=== PATIENT | female | born 1970 | race Caucasian/White ===

== ENCOUNTER 2018-11-24 17:33 | Observation (INO) | payer OTHER ==
[~2018-11-24] VITALS: Ht 167.6 cm; Wt 80.9 kg
[2018-11-24] MEDS ORDERED: MV-ONE PO (17:53)
[2018-11-24 18:03] LABS: IMMATURE GRANULOCYTES 0.5 % (0.0-5.0); MEAN CELL VOLUME 93.6 fL CALC (80.0-100.0); MEAN CORPUSCULAR HGB 32.1 pG CALC (26.0-32.0); MEAN CORPUSCULAR HGB CONC 34.3 g/L CALC (32.0-36.0); NEUT# 9.31 thou/uL (2.00-7.15); RED BLOOD COUNT 5.48 mill/uL (4.20-5.60); RED CELL DISTRI WIDTH 12.3 % (11.5-15.5)
[2018-11-24 18:05] LABS: GFR > 60 ML/MIN (>=60 (CALC)); GFR FOR AFR.AMER. > 60 ML/MIN (>=60 (CALC))
[2018-11-24 18:09] LABS: HEMATOCRIT 51.3 % (37.0-47.0); HEMOGLOBIN 17.6 g/dl (12.0-16.0)
[2018-11-24 18:21] LABS: ANION GAP 20 (6-22 (CALC)); BUN 18 mg/dL (7-17); BUN/CREATININE RATIO 32 (12-20 (CALC)); CARBON DIOXIDE 22 mmol/l (22-30); CHLORIDE 98 mmol/l (95-108); CREATININE 0.6 mg/dL (0.5-1.0); GFR > 60 ML/MIN (>=60 (CALC)); GFR FOR AFR.AMER. > 60 ML/MIN (>=60 (CALC)); POTASSIUM 4.4 mmol/l (3.5-5.1); SODIUM 136 mmol/l (137-146)
[2018-11-24 20:02] VITALS: BP 166/106
[2018-11-24 20:15] VITALS: BP 160/107
[2018-11-24 20:42] VITALS: BP 153/104
[2018-11-24 22:31] VITALS: BP 126/81
[2018-11-25] VITALS (7 sets, daily range): BP systolic 120–151; BP diastolic 76–104
[2018-11-25 13:52] LABS: URINE BILIRUBIN - DIPSTICK NEGATIVE (NEGATIVE); URINE BLOOD DIPSTICK NEGATIVE (NEGATIVE); URINE COLOR YELLOW; URINE GLUCOSE - DIPSTICK >=1000 mg/dL (NEGATIVE); URINE KETONE 15 mg/dL (NEGATIVE); URINE LEUK ESTERASE NEGATIVE (Negative); URINE NITRITE - DIPSTICK NEGATIVE (Negative); URINE PROTEIN - DIPSTICK TRACE mg/dL (NEG-TRACE); URINE UROBILINOGEN - DIPSTICK 0.2 E.U./dL (0.2)
[2018-11-25 14:05] LABS: URINE CLARITY CLEAR
[2018-11-26 00:40] VITALS: BP 111/69
[2018-11-26 04:50] VITALS: BP 127/80
[2018-11-26 05:01] LABS: HEMATOCRIT 45.5 % (37.0-47.0); IMMATURE GRANULOCYTES 0.4 % (0.0-5.0); MEAN CELL VOLUME 94.6 fL CALC (80.0-100.0); MEAN CORPUSCULAR HGB 32.2 pG CALC (26.0-32.0); MEAN CORPUSCULAR HGB CONC 34.1 g/L CALC (32.0-36.0); NEUT# 5.42 thou/uL (2.00-7.15); RED BLOOD COUNT 4.81 mill/uL (4.20-5.60); RED CELL DISTRI WIDTH 12.2 % (11.5-15.5)
[2018-11-26 05:07] LABS: HEMOGLOBIN 15.5 g/dl (12.0-16.0)
[2018-11-26 06:10] LABS: ALBUMIN 3.6 g/dL (3.2-5.0); ALKALINE PHOSPHATASE 82 u/l (38-126); AMYLASE 31 u/l (30-110); ANION GAP 15 (6-22 (CALC)); BILIRUBIN, TOTAL 0.6 mg/dL (0.0-1.4); BUN 19 mg/dL (7-17); BUN/CREATININE RATIO 33 (12-20 (CALC)); CARBON DIOXIDE 26 mmol/l (22-30); CHLORIDE 100 mmol/l (95-108); CREATININE 0.6 mg/dL (0.5-1.0); GFR > 60 ML/MIN (>=60 (CALC)); GFR FOR AFR.AMER. > 60 ML/MIN (>=60 (CALC)); MAGNESIUM 1.6 mg/dL (1.6-2.3); SGOT/AST 22 u/l (14-36); SODIUM 138 mmol/l (137-146)
[2018-11-26 06:11] LABS: LIPASE 52 u/l (23-300)
[2018-11-26 06:12] LABS: TOTAL PROTEIN 5.7 g/dL (6.3-8.2)
[2018-11-26 07:32] VITALS: BP 132/90
[2018-11-26 11:06] VITALS: BP 119/80
[2018-11-26 13:10] LABS: CHOLESTEROL HDL RATIO 5.5 (<4.4 (CALC))
[2018-11-26] MEDS ORDERED: CARVEDILOL6.25 MG PO (13:44)
[2018-11-26] MEDS ORDERED: LOSARTAN POTASS25 MG PO (13:44)
[2018-11-26] MEDS ORDERED: GLUCOPHAGE500 MG PO (13:44)
[2018-11-26] MEDS ORDERED: LIPITOR20 M1 PO (13:44)
[2018-11-26] MEDS ORDERED: ASPIRIN 81 LOW81 MG PO (13:44)
[2018-11-26] MEDS ORDERED: JANUVIA50 MG PO (13:44)
[2018-11-26] MEDS ORDERED: BUMETANIDE1 MG PO (14:11)
== END 2018-11-26 15:08 | disposition home or self-care (01) | DRG 291 ==
LOC: ED 17:33 → ED-I 18:47 → ED 19:00 → MS2 19:01
PROVIDERS: Family Medicine; Internal Medicine Nephrology; Nurse Practitioner Family; ADMIT Internal Medicine; ATTEND Internal Medicine
DX: I11.0 Hypertensive heart disease with heart failure (principal); I50.31 Acute diastolic (congestive) heart failure; E11.65 Type 2 diabetes mellitus with hyperglycemia; I16.0 Hypertensive urgency; E87.1 Hypo-osmolality and hyponatremia; I34.0 Nonrheumatic mitral (valve) insufficiency; D72.829 Elevated white blood cell count, unspecified
CPT/HCPCS: G0378; J1650; Q9967

== ENCOUNTER 2021-09-01 16:00 | Emergency (ER) | payer OTHER ==
[~2021-09-01] VITALS: Ht 167.6 cm; Wt 75.0 kg
[~2021-09-01 16:00] MED LIST: ASPIRIN 81 LOW81 MG PO; BUMETANIDE1 MG PO; CARVEDILOL6.25 MG PO; GLUCOPHAGE500 MG PO; JANUVIA50 MG PO; LIPITOR20 M1 PO; LOSARTAN POTASS25 MG PO; MV-ONE PO
[2021-09-01 19:03] LABS: IMMATURE GRANULOCYTES 0.1 % (0.0-5.0); MEAN CELL VOLUME 95.6 fL CALC (80.0-100.0); MEAN CORPUSCULAR HGB 32.5 pG CALC (26.0-32.0); NEUT# 9.37 thou/uL (2.00-7.15); RED BLOOD COUNT 4.12 mill/uL (4.20-5.60); RED CELL DISTRI WIDTH 12.2 % (11.5-15.5); URINE BILIRUBIN - DIPSTICK NEGATIVE (NEGATIVE); URINE BLOOD DIPSTICK NEGATIVE (NEGATIVE); URINE COLOR YELLOW; URINE GLUCOSE - DIPSTICK >=1000 mg/dL (NEGATIVE); URINE KETONE NEGATIVE (NEGATIVE); URINE LEUK ESTERASE NEGATIVE (NEGATIVE); URINE NITRITE - DIPSTICK NEGATIVE (Negative); URINE PH 5.5 (4.5-8.0); URINE PROTEIN - DIPSTICK NEGATIVE (NEG-TRACE); URINE UROBILINOGEN - DIPSTICK 0.2 E.U./dL (0.2)
[2021-09-01 19:05] LABS: HEMATOCRIT 39.4 % (37.0-47.0); HEMOGLOBIN 13.4 g/dl (12.0-16.0)
[2021-09-01 19:25] LABS: ALKALINE PHOSPHATASE 112 u/l (38-126); ANION GAP 13 (6-22 (CALC)); BILIRUBIN, TOTAL 0.6 mg/dL (0.0-1.4); BUN 24 mg/dL (7-17); BUN/CREATININE RATIO 22 (12-20 (CALC)); CARBON DIOXIDE 30 mmol/l (22-30); CHLORIDE 100 mmol/l (95-108); CREATININE 1.1 mg/dL (0.5-1.0); GFR 52 ML/MIN (>=60 (CALC)); GFR FOR AFR.AMER. > 60 ML/MIN (>=60 (CALC)); LIPASE 141 u/l (23-300); POTASSIUM 4.5 mmol/l (3.5-5.1); SGOT/AST 19 u/l (14-36); SODIUM 138 mmol/l (137-146)
[2021-09-01 19:26] LABS: ALBUMIN 4.8 g/dL (3.2-5.0)
[2021-09-01] MEDS ORDERED: ZOFRAN4 MG/TAB PO (19:48)
[2021-09-01] MEDS ORDERED: TORADOL PO (19:48)
[2021-09-01] MEDS ORDERED: METFORMIN500 M2 PO (20:24)
[2021-09-01] MEDS ORDERED: ENTRESTO 24-261 TAB PO (20:25)
[2021-09-01] MEDS ORDERED: JARDIANCE10 MG PO (20:26)
[2021-09-01] MEDS ORDERED: COREG6.25 MG PO (20:26)
[2021-09-01] MEDS ORDERED: BUMETANIDE1 MG PO (20:27)
[2021-09-01 21:32] VITALS: BP 126/70
== END 2021-09-01 21:32 | disposition home or self-care (01) | DRG 392 ==
LOC: ED 16:00
PROVIDERS: Family Medicine
DX: R10.10 Upper abdominal pain, unspecified (principal); R11.2 Nausea with vomiting, unspecified; R19.7 Diarrhea, unspecified; I11.0 Hypertensive heart disease with heart failure; I50.9 Heart failure, unspecified; E11.9 Type 2 diabetes mellitus without complications; K80.20 Calculus of gallbladder without cholecystitis without obstruction; Z85.42 Personal history of malignant neoplasm of other parts of uterus

== ENCOUNTER 2021-10-23 15:45 | Observation (INO) | payer BC ==
[~2021-10-23] VITALS: Ht 167.6 cm; Wt 82.0 kg
[~2021-10-23 15:45] MED LIST changes: +COREG6.25 MG PO; +ENTRESTO 24-261 TAB PO; +JARDIANCE10 MG PO; +METFORMIN500 M2 PO; +TORADOL PO; +ZOFRAN4 MG/TAB PO
[2021-10-23 18:50] LABS: HEMATOCRIT 40.9 % (37.0-47.0); HEMOGLOBIN 13.6 g/dl (12.0-16.0); IMMATURE GRANULOCYTES 0.4 % (0.0-5.0); MEAN CELL VOLUME 97.8 fL CALC (80.0-100.0); MEAN CORPUSCULAR HGB 32.5 pG CALC (26.0-32.0); MEAN CORPUSCULAR HGB CONC 33.3 g/dL CAL (32.0-36.0); NEUT# 11.91 thou/uL (2.00-7.15); RED BLOOD COUNT 4.18 mill/uL (4.20-5.60); RED CELL DISTRI WIDTH 12.4 % (11.5-15.5)
[2021-10-23 18:51] LABS: URINE BILIRUBIN - DIPSTICK NEGATIVE (NEGATIVE); URINE BLOOD DIPSTICK NEGATIVE (NEGATIVE); URINE CLARITY CLEAR; URINE COLOR YELLOW; URINE GLUCOSE - DIPSTICK >=1000 mg/dL (NEGATIVE); URINE KETONE TRACE mg/dL (NEGATIVE); URINE LEUK ESTERASE NEGATIVE (Negative); URINE NITRITE - DIPSTICK NEGATIVE (Negative); URINE PROTEIN - DIPSTICK NEGATIVE (NEG-TRACE); URINE UROBILINOGEN - DIPSTICK 0.2 E.U./dL (0.2)
[2021-10-23 19:00] VITALS: BP 152/78
[2021-10-23 19:07] LABS: CREATININE 1.2 mg/dL (0.5-1.0); POTASSIUM 4.4 mmol/l (3.5-5.1)
[2021-10-24 04:00] VITALS: BP 121/66
[2021-10-24 05:40] LABS: HEMATOCRIT 35.4 % (37.0-47.0); HEMOGLOBIN 11.8 g/dl (12.0-16.0); MEAN CELL VOLUME 98.1 fL CALC (80.0-100.0); MEAN CORPUSCULAR HGB 32.7 pG CALC (26.0-32.0); MEAN CORPUSCULAR HGB CONC 33.3 g/dL CAL (32.0-36.0); RED BLOOD COUNT 3.61 mill/uL (4.20-5.60); RED CELL DISTRI WIDTH 12.3 % (11.5-15.5)
[2021-10-24 06:21] LABS: BILIRUBIN, TOTAL 0.8 mg/dL (0.0-1.4); CREATININE 1.2 mg/dL (0.5-1.0); MAGNESIUM 1.4 mg/dL (1.6-2.3); POTASSIUM 3.9 mmol/l (3.5-5.1)
[2021-10-24 06:22] LABS: ALBUMIN 3.5 g/dL (3.2-5.0)
[2021-10-24] MEDS ORDERED: PERCOCET 5/321 COMBO PO (10:54)
[2021-10-24 15:03] VITALS: BP 119/64
== END 2021-10-24 16:43 | disposition home or self-care (01) | DRG 419 ==
LOC: MS2 15:45
PROVIDERS: ADMIT Hospitalist; ATTEND Hospitalist
PROC: 0FT44ZZ Resection of Gallbladder, Percutaneous Endoscopic Approach (ICD-10-PCS; principal; 2021-10-24)
DX: K80.00 Calculus of gallbladder with acute cholecystitis without obstruction (principal); I10 Essential (primary) hypertension; E11.9 Type 2 diabetes mellitus without complications; Z85.42 Personal history of malignant neoplasm of other parts of uterus; Z79.84 Long term (current) use of oral hypoglycemic drugs; Z20.822 Contact with and (suspected) exposure to COVID-19
CPT/HCPCS: G0378; G0379; J0131; J3475; Q9967